=== PATIENT | female | born 1970 | race Caucasian/White ===

== ENCOUNTER → 2017-08-30 | Outpatient (CLI) | payer OTHER ==
[2017-09-05 15:21] LABS: INSULIN LIKE GROWTH FACTOR-I 175 ng/mL (52-328)
== END | disposition home or self-care (01) ==
LOC: C.LAB1850 13:20
PROVIDERS: ATTEND Internal Medicine Endocrinology, Diabetes & Metabolism
DX: N91.2 Amenorrhea, unspecified (principal); E23.0 Hypopituitarism; E03.9 Hypothyroidism, unspecified; E06.3 Autoimmune thyroiditis; D49.7 Neoplasm of unspecified behavior of endocrine glands and other parts of nervous system; R51 Headache; Z86.39 Personal history of other endocrine, nutritional and metabolic disease